=== PATIENT | female | born 1950 | race Caucasian/White ===

== ENCOUNTER 2017-01-23 09:49 | Day surgery (SDC) | payer MEDICARE, MEDICAID ==
[~2017-01-23] VITALS: Ht 154.9 cm; Wt 136.4 kg
--- NOTE | ~2017-01-23 | OP ---
PATIENT NAME: ADDIE BRIGGS MEDICAL RECORD: [id number] :52 LOCATION:[facility] ADMISSION DATE: SURGEON: MIKE REYNA DO DATE OF OPERATION: 01/23/2017 DATE OF PROCEDURE: 01/23/2017. PROCEDURE: EGD with biopsies. INDICATIONS: Dysphagia, Crocker's esophagus, GERD. SCOPE: Olympus video gastroscope. MEDICATIONS: Propofol 150 mg IV per anesthesia. ESTIMATED BLOOD LOSS: Minimal. COMPLICATIONS: None. FINDINGS: Informed consent was given. The patient was made comfortable with the above medication. After reaching an adequate level of sedation by slow IV push, the patient was placed on her left side. The endoscope was then advanced under direct visualization through the mouth to the second portion of the duodenum. The upper, middle, and distal thirds of the esophagus appeared normal. At the GE junction, there was evidence of short segment Crocker's esophagus with no specific tongue, but rather a diffuse circular short segment. There were no ulcerations in this site. Multiple biopsies were taken to submit to histology. The endoscope was advanced beyond the GE junction into the stomach and retroflexed to view the cardia, where a small sliding hiatal hernia was present. The fundus and body of the stomach as well as the antrum and prepyloric region had some granularity and erythema consistent with possible gastritis. Biopsies were taken from the antrum, incisura and body to submit to histology and to rule out H. pylori. The endoscope was advanced beyond the pylorus into the duodenum where the bulb and second portion of the duodenum appeared normal. The scope was withdrawn from the patient. The patient tolerated the procedure well and there were no complications. IMPRESSION: 1. Short segment Crocker's esophagus at the gastroesophageal junction. 2. Small sliding hiatal hernia. 3. Erythema and granularity of the stomach consistent with gastritis, biopsies taken. PLAN AND RECOMMENDATIONS: 1. Discharge home when recovery parameters are met. 2. Continue current medications. 3. Continue a reflux diet and reflux precautions. 4. Follow up biopsy specimen results. If there is no evidence of dysplasia, a OPERATIVE REPORT [id number] ADDIE BRIGGS recall EGD will be performed in 2 years for continued surveillance of Crocker's esophagus without dysplasia. TRANSINT:[id number] Voice Confirmation ID: [id number] DOCUMENT ID: [id number] MIKE REYNA DO CC: [id number] DICTATION DATE: 01/23/17 1232 REDUCER: 01/23/17 2206 [facility] 01/23/17 [place] [id number] [place] [id number]
[2017-01-23 11:30] VITALS: Ht 154.9 cm; Wt 136.4 kg
[2017-01-23 11:31] LABS: BASOPHILS 0.1 % (0-2); EOSINOPHILS 1.8 % (0-7); HEMATOCRIT 45.5 % (36.0-48.0); HEMOGLOBIN 14.6 g/dL (12-16); IMMATURE GRANULOCYTES 0.3 % (0-5); LYMPHOCYTES 25.8 % (15-50); MCH 29.1 pg (26.0-34.0); MCHC 32.1 g/dL (31.0-37.0); MCV 90.8 fL (80.0-100.0); MEAN PLATELET VOLUME 9.8 fL (7.4-10.4); MONOCYTES 8.5 % (2-11); NEUTROPHILS 63.5 % (40-80); PLATELET COUNT 287 10x3/uL (130-400); RBC 5.01 10x6/uL (4.00-5.40); RDW 14.1 % (11.5-14.5); WBC 7.3 10x3/uL (4.8-10.8)
[2017-01-23] MEDS ORDERED: HYDROCODONE-APA1 TAB PO (11:41)
[2017-01-23] MEDS ORDERED: LANTUS INSULIN10 ML (11:42)
[2017-01-23] MEDS ORDERED: ZOCOR20 MG PO (11:43)
[2017-01-23] MEDS ORDERED: COZAAR50 MG PO (11:43)
[2017-01-23 11:44] LABS: CALC OSMOLALITY 279 mosm/kg (275-300); CALCIUM 9.3 mg/dL (8.5-10.1); CHLORIDE - SERUM 101 mmol/L (98-107); CREATININE - SERUM 0.8 mg/dL (0.6-1.3); GLUCOSE 108 mg/dL (74-106); POTASSIUM - SERUM 3.6 mmol/L (3.5-5.1); SODIUM 140 mmol/L (136-145); UREA NITROGEN 12 mg/dL (7-18); eGFR NON AFRICAN AMERICAN 76 mL/min (90-120)
[2017-01-23] MEDS ORDERED: NEURONTIN 300300 MG (11:44)
[2017-01-23] MEDS ORDERED: PROZAC40 MG PO (11:44)
[2017-01-23] MEDS ORDERED: TRAZODONE HCL50 MG PO (11:45)
--- NOTE | 2017-01-23 18:33 | NUR ---
1330 IV DC WITH CATHER TIP INTACT
== END 2017-01-23 13:45 | disposition home or self-care (01) ==
LOC: D.OPS 09:49
PROVIDERS: Anesthesiology
DX: K22.70 Barrett's esophagus without dysplasia (principal); K44.9 Diaphragmatic hernia without obstruction or gangrene; K21.9 Gastro-esophageal reflux disease without esophagitis

== ENCOUNTER → 2017-12-04 20:40 | Outpatient (CLI) | payer MEDICARE, MEDICAID ==
[2017-01-23 11:30] VITALS: BMI 56.8
[~2017-12-04 20:40] MED LIST: COZAAR50 MG PO; HYDROCODONE-APA1 TAB PO; LANTUS INSULIN10 ML; NEURONTIN 300300 MG; PROZAC40 MG PO; TRAZODONE HCL50 MG PO; ZOCOR20 MG PO
== END | disposition home or self-care (01) ==
LOC: D.MAMMO 13:15
DX: Z12.31 Encounter for screening mammogram for malignant neoplasm of breast (principal)

== ENCOUNTER 2020-03-23 06:10 | Day surgery (SDC) | payer MEDICARE, MEDICAID ==
[2020-03-21 11:06] LABS: BASOPHILS 0.4 % (0-2); EOSINOPHILS 1.7 % (0-7); HEMATOCRIT 47.8 % (36.0-48.0); HEMOGLOBIN 15.8 g/dL (12-16); IMMATURE GRANULOCYTES 0.2 % (0-5); LYMPHOCYTES 26.9 % (15-50); MCH 29.9 pg (26.0-34.0); MCHC 33.1 g/dL (31.0-37.0); MCV 90.4 fL (80.0-100.0); MEAN PLATELET VOLUME 9.8 fL (7.4-10.4); MONOCYTES 5.8 % (2-11); PLATELET COUNT 309 10x3/uL (130-400); RBC 5.29 10x6/uL (4.00-5.40); RDW 13.3 % (11.5-14.5); WBC 8.3 10x3/uL (4.8-10.8)
[2020-03-21 11:22] LABS: ANION GAP 11.7 mmol/L (8-16); CALCIUM 9.8 mg/dL (8.5-10.1); CARBON DIOXIDE 27.6 mmol/L (21.0-32.0); CREATININE - SERUM 0.9 mg/dL (0.6-1.3); POTASSIUM - SERUM 4.3 mmol/L (3.5-5.1)
[~2020-03-23] VITALS: Ht 154.9 cm; Wt 127.0 kg
--- NOTE | ~2020-03-23 | OP ---
PATIENT NAME: ADDIE BRIGGS MEDICAL RECORD: [id number] :52 LOCATION:[facility] ADMISSION DATE: SURGEON: BIA SYED MD DATE OF OPERATION: 03/23/2020 PREOPERATIVE DIAGNOSIS: Left medial malleolus fracture. POSTOPERATIVE DIAGNOSIS: Left medial malleolus fracture. PROCEDURE PERFORMED: ORIF, left medial malleolus. INDICATIONS: Ms. Briggs is a 69-year-old female who fell and injured her ankle approximately 1 week ago sustained a medial malleolus fracture. We talked to her about the injury and the need for repair. Arrangements were made for her to come to the operating room today. Risks, benefits, and alternatives of surgery were discussed with the patient and consent was obtained. DESCRIPTION OF PROCEDURE: The patient was met in the holding area where her identity and operation procedure was performed. The left lower extremity was marked. She was taken to the operating room where she was placed supine on the operating table. Anesthesia was administered. Tourniquet was applied to left leg and left leg was prepped and draped in a sterile fashion. The patient received preoperative antibiotics and timeout was performed to initiating the case. On initiation of the case, the leg was exsanguinated. Tourniquet was raised. Total tourniquet time was 48 minutes. Incision was made over the medial ankle at the level of the medial malleolus. Incised through the skin and subcutaneous tissue dissected down to the medial malleolus. We got to the fracture medial malleolus and there was some comminution of the medial cortex. The fracture hematoma was debrided with suction. A dental pick was used to assist in reduction. We then placed a K-wire at the tip of the medial malleolus anteriorly. We confirmed our reduction and position of our hardware under fluoroscopy, both AP and lateral. We were pleased with its position. We then placed a second K-wire using the parallel guide posterior to this. Two 4-0 partially threaded cannulated screws were then placed and advanced down over these K wires to provide screw fixation of the medial malleolus. Final images were obtained and show good alignment fixation of the medial malleolus. The wound was irrigated thoroughly with saline. Deep tissues were closed with Vicryl suture and the skin was closed with vertical mattress nylon. Sterile dressing was placed. The patient was placed into a well-padded splint. The patient was turned back over to anesthesia where she was awakened, extubated, and taken to recovery room in stable condition. POSTOPERATIVE PLAN: The patient is going to return home with her family today. She needs to remain nonweightbearing on the left leg for at least 6 weeks. We will plan to see her back in clinic in 2 weeks for evaluation. ANESTHESIA: General with peripheral nerve block. COMPLICATIONS: None. ESTIMATED BLOOD LOSS: 25 mL. TRANSINT:[id number] Voice Confirmation ID: [id number] DOCUMENT ID: [id number] OPERATIVE REPORT [id number] ADDIE BRIGGS BRENT M MD CC: [id number] DICTATION DATE: 03/23/20 1045 STERILE PROCESSING TECH: 03/23/201925 [facility] 03/23/20 [facility] [address] [place] [address]
[~2020-03-23 06:10] MED LIST changes: +ANORO ELLIPTA1 EACH INH; +BASAGLAR K100 UNIT/1 SC; +LIPITOR20 MG PO; -NEURONTIN 300300 MG; +NEURONTIN 300300 MG PO; +NOVOLOG100 UNIT/1 SC
[2020-03-23 07:14] VITALS: BP 156/81; Ht 154.9 cm; Wt 127.0 kg
--- NOTE | 2020-03-23 07:31 | NUR ---
According to the suicide screen the patient scores low for suicide and she does not require a 1:1 observation. Provided a suicide resource flyer.
--- NOTE | 2020-03-23 07:48 | NUR ---
0745 PT HAS A BS OF 258. SHE STATES THAT THIS IS HER NORMAL BLOOD SUGAR AND THAT MANY TIMES IT IS OVER 300. 0749 NOTIFIED ANESTHESIA (MADHAV GUPTA) OF BS RESULTS. ALONSO STATES THAT SHE WILL NOTIFY MADHAV CURRY OF BS AND IF ANY TREATMENT IS NEEDED.
--- NOTE | 2020-03-23 09:53 | NUR ---
PT LEFT LEG CLEANSED WITH ALCOHOL PRIOR TO PREP WITH CHLORAPREP X2.
--- NOTE | 2020-03-23 12:26 | NUR ---
ALL DC INSTRUCTIONS GIVEN. VOICES UNDERSTANDING. TAKEN OUT BY BRENDA VIA W/C. ADVISED TO CALL OR COME BACK IF ANY PROBLEMS.
== END 2020-03-23 12:25 | disposition home or self-care (01) ==
LOC: D.PAN 06:10 → D.OPS 08:15 → D.PAN 12:25
PROVIDERS: Anesthesiology; ATTEND Orthopaedic Surgery
DX: S82.52XA Displaced fracture of medial malleolus of left tibia, initial encounter for closed fracture (principal); X58.XXXA Exposure to other specified factors, initial encounter; J44.9 Chronic obstructive pulmonary disease, unspecified; E11.9 Type 2 diabetes mellitus without complications; K21.9 Gastro-esophageal reflux disease without esophagitis; Z79.4 Long term (current) use of insulin; I10 Essential (primary) hypertension